=== PATIENT | male | born 1980 | race Caucasian/White ===

== ENCOUNTER 2018-02-01 16:30 | Emergency (ER) | payer MEDICARE ==
[~2018-02-01] VITALS: Ht 167.6 cm; Wt 78.5 kg
[2018-02-01 16:58] VITALS: BP 121/86
--- NOTE | 2018-02-01 17:27 | NUR ---
PT AMBULATED TO TY
--- NOTE | 2018-02-01 17:31 | NUR ---
PATIENT PRESENTS TO ED W/ C/O LT HAND PAIN SP INJURY . LACERATION NOTED BETWEEN LT THUMB AND INDEX FINGER;NO ACTIVE BLEEDING;DENIES N/V/D; SKIN IS PINK/WARM/DRY; AAOX4 WITH EVEN AND STEADY GAIT; LUNGS CLEAR BL; HR EVEN AND REGULAR; PT DENIES ANY FEVER, CP, SOB, OR COUGH AT THIS TIME; PATIENT STATES PAIN OF 10/10 AT THIS TIME;ER MD MADE AWARE OF PT STATUS.
[2018-02-01] MEDS ORDERED: LIDOCAINE 1% 500 MG/50 ML VIAL INJ SCH (18:20)
[2018-02-01] MEDS ORDERED: LIDOCAINE MPF 1% - **ER/OR** 5 ML ONE (18:34)
--- NOTE | 2018-02-01 18:57 | NUR ---
LIDOCAINE WAS ADMINISTERED BY DR DONALDSON DURING THE PROCEDURE.
--- NOTE | 2018-02-01 18:57 | NUR ---
DR DONALDSON DOING SUTURE;
[2018-02-01 19:18] VITALS: BP 121/86
--- NOTE | 2018-02-01 19:18 | NUR ---
Patient discharged with v/s stable with bleeding controlled. Written and verbal after care instructions given and explained. Patient verbalized understanding. Ambulatory with steady gait. All questions addressed prior to discharge. Advised to follow up with PMD.
== END 2018-02-01 19:18 | disposition home or self-care (01) ==
LOC: MED 16:30
DX: S61.412A Laceration without foreign body of left hand, initial encounter (principal); W45.8XXA Other foreign body or object entering through skin, initial encounter; Y93.89 Activity, other specified; Y92.89 Other specified places as the place of occurrence of the external cause; Y99.8 Other external cause status
CPT/HCPCS: 12001; 99283; J2001

== ENCOUNTER 2018-02-09 17:32 | Emergency (ER) | payer MEDICARE ==
[~2018-02-09] VITALS: Ht 172.7 cm; Wt 68.9 kg
[2018-02-09 17:37] VITALS: BP 120/82
--- NOTE | 2018-02-09 17:44 | NUR ---
PT AMBULATED TO ER CHAIR D
--- NOTE | 2018-02-09 17:46 | NUR ---
37 YO M BIB SELF W/ C/O "LOSING A STITCH" ON HIS LEFT HAND LACERATION. PT REPORTS HE RECEIVED STITCHES HERE AT [facility] LAST WEEK BUT LOST A STITCH AND NOW THE CENTER OF THE LACERATION HAS REOPENED. PT JUST WANTS IT RECHECKED. PT A&O X 4. GCS 15. CMS INTACT. RR EVEN AND UNLABORED. LUNG SOUNDS CLEAR. ER MD GARZA NOTIFIED. PT NEEDS MET. WILL CONTINUE TO MONITOR.
[2018-02-09] MEDS ORDERED: BACITRACIN OINT 500 UNITS/GM PKT TP ONE (18:00)
[2018-02-09 18:29] VITALS: BP 120/82
--- NOTE | 2018-02-09 18:29 | NUR ---
Patient discharged with v/s stable. Written and verbal after care instructions given and explained. Patient alert, oriented and verbalized understanding of instructions. Ambulatory with steady gait. All questions addressed prior to discharge. ID band removed. Patient advised to follow up with PMD. Rx of Kefflex, Bactrim, and Ibuprofen given. Patient educated on indication of medication including possible reaction and side effects. Opportunity to ask questions provided and answered.
== END 2018-02-09 18:29 | disposition home or self-care (01) ==
LOC: MED 17:32
DX: T81.33XD Disruption of traumatic injury wound repair, subsequent encounter (principal); S61.412D Laceration without foreign body of left hand, subsequent encounter; X58.XXXD Exposure to other specified factors, subsequent encounter
CPT/HCPCS: 99283